=== PATIENT | male | born 1965 | race Caucasian/White ===

== ENCOUNTER 2021-02-14 14:17 | Emergency (ER) | payer MEDICARE, MEDICAID ==
[~2021-02-14] VITALS: Ht 180.3 cm; Wt 100.0 kg
[2021-02-14] MEDS ORDERED: PHENYTOIN SODIUM EXTENDED 100MG CAPSULE PO ONE ×2 (18:00)
[2021-02-14 19:40] VITALS: BP 115/64
== END 2021-02-14 19:52 | disposition home or self-care (01) ==
LOC: ER 14:17
DX: R56.9 Unspecified convulsions (principal); E11.9 Type 2 diabetes mellitus without complications; Z91.14 Patient's other noncompliance with medication regimen
CPT/HCPCS: 93005; 99285